=== PATIENT | female | born 1990 | race Caucasian/White ===

== ENCOUNTER 2020-11-14 09:27 | Emergency (ER) | payer OTHER ==
[~2020-11-14 09:27] MED LIST: HUMULIN N100 UNIT/3 SC; IBUPROFEN800 MG PO; LISPRO SC
[2020-11-14 11:12] LABS: BASOPHIL 0.6 % (0-2); EOSINOPHIL 1.8 % (0-5); HCT 31.7 % (37.0-47.0); HGB 10.2 g/dl (12.5-16.0); LYMPHOCYTE 18.6 % (15-48); MCH 27.7 pg (25.0-31.0); MCHC 32.2 g/dL (32.0-36.0); MCV 86.1 fL (78.0-100.0); MPV 8.6 fL (6.0-9.5); NEUTROPHIL 71.4 % (41-80); NRBC 0; PLT 673 K/uL (150-400); RBC 3.68 M/uL (4.20-5.40); RDW 12.4 % (11.5-14.0); WBC 18.2 K/uL (4.0-10.5)
[2020-11-14 11:44] LABS: ALBUMIN 2.1 g/dL (3.4-5.0); BILIRUBIN - TOTAL 0.1 mg/dL (0.2-1.0); BUN/CREAT RATIO (CALC) 13.5 RATIO; CREATININE 0.96 mg/dL (0.51-0.95); GLOBULIN (CALCULATION) 5.1 g/dL; POTASSIUM 4.5 mmol/L (3.5-5.1); TOTAL PROTEIN 7.2 g/dL (6.4-8.2)
== END 2020-11-14 13:30 | disposition left against medical advice (07) ==
LOC: FER 09:27
PROVIDERS: Emergency Medicine
DX: R22.1 Localized swelling, mass and lump, neck (principal); E11.65 Type 2 diabetes mellitus with hyperglycemia; D72.829 Elevated white blood cell count, unspecified; F17.210 Nicotine dependence, cigarettes, uncomplicated
CPT/HCPCS: 36415; 70450; 80053; 85025; J1885

== ENCOUNTER 2021-02-22 09:10 | Emergency (ER) | payer OTHER ==
[2021-02-22] MEDS ORDERED: ATARAX25 MG PO (10:28)
[2021-02-22] MEDS ORDERED: STROMECTOL3 MG PO (10:28)
[2021-02-22] MEDS ORDERED: BACTROBAN NASAL1 GM TOP (10:28)
[2021-02-22] MEDS ORDERED: PERMETHRIN CREA60 GM TOP (10:28)
== END 2021-02-22 10:40 | disposition home or self-care (01) ==
LOC: FER 09:10
DX: B86 Scabies (principal); F17.200 Nicotine dependence, unspecified, uncomplicated
CPT/HCPCS: 99282